=== PATIENT | female | born 1985 | race Caucasian/White ===

== ENCOUNTER 2019-08-07 12:55 | Emergency (ER) | payer SELFPAY ==
[2019-08-07] VITALS (15 sets, daily range): BP systolic 86–113; BP diastolic 49–67; Ht 162.6 cm; Wt 69.5 kg
[~2019-08-07] VITALS: Ht 162.6 cm; Wt 69.5 kg
[2019-08-07] MEDS ORDERED: PRENAVITE1 TAB PO (13:03)
[2019-08-07 13:30] LABS: BASOPHILS 0.1 % (0-2); EOSINOPHILS 0 % (0-7); HEMATOCRIT 26.9 % (36.0-48.0); HEMOGLOBIN 8.9 g/dL (12-16); IMMATURE GRANULOCYTES 0.3 % (0-5); LYMPHOCYTES 5.8 % (15-50); MCH 30.3 pg (26.0-34.0); MCHC 33.1 g/dL (31.0-37.0); MCV 91.5 fL (80.0-100.0); MONOCYTES 5.3 % (2-11); NEUTROPHILS 88.5 % (40-80); PLATELET COUNT 220 10x3/uL (130-400); RBC 2.94 10x6/uL (4.00-5.40); RDW 13.6 % (11.5-14.5); WBC 18.2 10x3/uL (4.8-10.8)
[2019-08-07 13:47] LABS: APTT 25.6 SECONDS (22.8-39.4); INR 1.14 (0.85-1.17); PROTIME 14.1 SECONDS (11.6-15.0)
[2019-08-07 13:58] LABS: ALBUMIN 1.7 g/dL (3.4-5.0); ALKALINE PHOSPHATASE 68 U/L (46-116); ALT (SGPT) 29 U/L (10-68); BILIRUBIN - TOTAL 0.72 mg/dL (0.2-1.3); CALC OSMOLALITY 271 mosm/kg (275-300); CARBON DIOXIDE 17.3 mmol/L (21.0-32.0); CHLORIDE - SERUM 106 mmol/L (98-107); CKMB 1.7 U/L (0.0-3.6); CREATINE KINASE 98 UL (21-215); CREATININE - SERUM 0.7 mg/dL (0.6-1.3); GLUCOSE 107 mg/dL (74-106); SODIUM 137 mmol/L (136-145); TROPONIN-I < 0.017 ng/mL (0.000-0.060); UREA NITROGEN 8 mg/dL (7-18); eGFR NON AFRICAN AMERICAN > 90 mL/min (90-120)
[2019-08-07 14:02] LABS: CALCIUM 6.9 mg/dL (8.5-10.1)
--- NOTE | 2019-08-07 14:02 | NUR ---
NOTIFIED BY LAB OF CRITICAL CALCIUM OF 6.9 EDP NOTIFIED AND CRITICAL LAB SHEET PLACED ON PT'S CHART.
[2019-08-07 14:10] LABS: APPEARANCE CLEAR (CLEAR); BILIRUBIN NEGATIVE (NEGATIVE); COLOR DK YELLOW (YELLOW); GLUCOSE NEGATIVE (NEGATIVE); KETONE MODERATE mg/dL (NEGATIVE); NITRITE NEGATIVE (NEGATIVE); PROTEIN TRACE mg/dL (NEGATIVE); UROBILINOGEN NORMAL (NORMAL)
--- NOTE | 2019-08-07 15:14 | NUR ---
TO ER TRAUMA BAY 3, PT IS LYING ON STRETCHER WITH HOB ELEVATED TO 45 DEGREES, PT IS ON NON REBREATHER O2 MASK AT 20 L. ABDOMEN PALPATES SOFT. PT DENIES VAG BLEEDING OR LEAKING OF FLUID. PT REPORTS FEELING POSTIVE MOVEMENT. VAS PERFORMED WITH IMMEDIATE MOVEMENT FELT BY PT, AND PALPATED.
--- NOTE | 2019-08-07 15:19 | NUR ---
EFM/TOCO APPLIED. PT REPORTS SHE HAS BEEN FEELING OCCASIONAL CONTRACTIONS FOR THE LAST 2 WEEKS. FHR NOTED 140'S-150'S, MODERATE VARIABILITY.
--- NOTE | 2019-08-07 15:32 | NUR ---
PT TILTED TO HER RIGHT WITH WARM, ROLLED BLANKET UNDER BACK FOR SUPPORT AND COMFORT.
--- NOTE | 2019-08-07 15:35 | NUR ---
PT SITTING STRAIGHT UP ON THE STRETCHER, COUGHING.
--- NOTE | 2019-08-07 15:37 | NUR ---
NOTIFIED BY LAB OF ELEVATED LACTIC ACID OF 3.1 CRITICAL LAB SHEET COMPLETED AND PLACED ON PT'S CHART. EDP AWARE.
--- NOTE | 2019-08-07 15:38 | NUR ---
EFM ADJUSTED TO BETTER TRAIN BRAKEM[place] FHR, FHR 130'S-140'S, WITH MOVEMENT AUSCULTATED ON MONITOR. PT REPORTS SHE IS FEELING THE BABY MOVE "QUITE A BIT".
--- NOTE | 2019-08-07 15:42 | NUR ---
DR. FORTE CONTRACTED AND UPDATED ON PATIENT'S LACTIC ACID RESULTS OF 3.1 VIA PHONE
--- NOTE | 2019-08-07 15:50 | NUR ---
PHONE CALL TO DR. REANNA MD NOTIFIED PT IS MECHELLE 3-5 MINUTES APART, 40-50 SEC, PALPATING MILD. MD NOTIFIED OF FHR 130'S-140'S, MODERATE VARIABILITY, MOVEMENT, AND DIFFICULTLY IN CONTINOUSLY MONITORING PT DUE TO PT'S CONTINUED MOVEMENT IN THE BED. NOTIFIED THAT DR. ALMONTE HAS ROUNDED ON PT HE REQUESTS FOR DR. FORTE TO ORDER GI MEDS/PROPHYLAXIS, IE PROTONIX/PEPCID. DR. FORTE STATES HE WILL BE DOWN TO SEE THE PT IN THE ER.
--- NOTE | 2019-08-07 16:00 | NUR ---
PATIENT AWAKE AND ALERT; ASSISTED WITH BEDPAN; NO NEEDS NOTED; UPDATED ON PLAN OF CARE AND DELAYS IN CARE.
--- NOTE | 2019-08-07 16:55 | NUR ---
DR. FORTE IN PT'S ROOM. MD SPEAKING WITH PT. PLAN OF CARE DISCUSSED WITH PT BY MD. MD PERFORMS STERILE SPECULUM EXAM WITH FFN OBTAINED, AND GC/CHLAMYDIA TEST OBTAINED BY , SVE DONE BY DR. FORTE, WITH CERVIX CLOSED/THICK/OOP. VERBAL ORDER RECEIVED FROM DR. FORTE TO REMOVE PT FROM EFM/TOCO, TO OBTAIN NST ONCE EVERY 24 HOURS, UNLESS PT C/O INCREASED PAIN/DISCOMFORT, TO NOTIFY MD OF CHANGES.
--- NOTE | 2019-08-07 17:00 | NUR ---
NO NEEDS NOTED; WILL CONTINUE TO MONITOR.
[2019-08-07 19:43] LABS: UDS - AMPHET POSITIVE QUAL (NEGATIVE); UDS - BARB NEGATIVE QUAL (NEGATIVE); UDS - BENZO NEGATIVE QUAL (NEGATIVE); UDS - COCAINE NEGATIVE QUAL (NEGATIVE); UDS - OPIATE NEGATIVE QUAL (NEGATIVE); UDS - PCP NEGATIVE QUAL (NEGATIVE); UDS - THC NEGATIVE QUAL (NEGATIVE)
[2019-08-08 21:06] LABS: CHLAMYDIA TRACHOMATIS, NAA Negative (Negative)
== END 2019-08-07 19:44 | disposition short-term general hospital (02) ==
LOC: D.ER 12:55 → D.ICU 16:04
PROVIDERS: Family Medicine; Family Medicine Adult Medicine
DX: O98.813 Other maternal infectious and parasitic diseases complicating pregnancy, third trimester (principal); O99.323 Drug use complicating pregnancy, third trimester; O99.513 Diseases of the respiratory system complicating pregnancy, third trimester; A41.9 Sepsis, unspecified organism; F15.10 Other stimulant abuse, uncomplicated; Z3A.28 28 weeks gestation of pregnancy; R04.2 Hemoptysis; R09.02 Hypoxemia; F17.210 Nicotine dependence, cigarettes, uncomplicated